=== PATIENT | male | born 1975 | race Caucasian/White ===

== ENCOUNTER 2016-09-28 16:56 | Inpatient (IN) | payer SELFPAY ==
[~2016-09-28] VITALS: Ht 177.8 cm; Wt 73.5 kg
[2016-09-28] MEDS ORDERED: SODIUM CHLORIDE 0.9% 1,000ML IVBOLUS ONE (17:30)
[2016-09-28] MEDS ORDERED: SODIUM CHLORIDE FLUSH 10ML SYR IVF ONE (17:30)
[2016-09-28] MEDS ORDERED: ACETAMINOPHEN 500 MG TABLET PO ONE (17:30)
[2016-09-28] MEDS ORDERED: CEFTRIAXONE 1,000 MG in SODIUM CHLORIDE 0.9% 50 ML IVPB ONE (17:30)
[2016-09-28] MEDS ORDERED: ACETAMINOPHEN 500 MG TABLET ONE (17:44)
[2016-09-28 18:15] LABS: BLOOD UREA NITROGEN 13 mg/dL (7-18)
[2016-09-28] MEDS ORDERED: IBUPROFEN 200 MG TABLET ONE (18:24)
[2016-09-28] MEDS ORDERED: IBUPROFEN 200 MG TABLET PO ONE (18:30)
[2016-09-28 18:46] LABS: DIFF TOTAL CELLS COUNTED 100 CELL DIFF
[2016-09-28 18:48] LABS: ANISOCYTOSIS 1+; HYPOCHROMIA 1+; MICROCYTOSIS 1+; OVALOCYTES 1+; POIKILOCYTOSIS 1+
[2016-09-28] MEDS ORDERED: GUAIFENESIN/DM 200-20MG, 10ML UDC PO PRN (19:00)
[2016-09-28] MEDS ORDERED: LORazepam 2 MG/ML, 1ML IVPush PRN (19:00)
[2016-09-28] MEDS ORDERED: morphine SULFATE 10 MG/ML, 1ML IVPush PRN (19:00)
[2016-09-28] MEDS ORDERED: ONDANSETRON 2MG/ML, 2ML IVPush PRN (19:00)
[2016-09-28 19:04] LABS: VERIFY COUNTS? YES
[2016-09-28] MEDS ORDERED: ENOXAPARIN 40 MG/0.4 ML ONE (19:08)
[2016-09-28] MEDS ORDERED: THIAMINE 100MG TABLET ONE (19:08)
[2016-09-28] MEDS: CEFTAROLINE 600 MG in SODIUM CHLORIDE 0.9% 100 ML IV SCH (19:50)
[2016-09-28] MEDS: THIAMINE 100MG TABLET PO SCH (19:50)
[2016-09-28] MEDS: ENOXAPARIN 40 MG/0.4 ML SQ SCH (19:50)
[2016-09-28] MEDS: FOLIC ACID 1 MG TABLET PO SCH (19:51)
[2016-09-28] MEDS: FAMOTIDINE 20 MG TABLET PO SCH (20:55)
[2016-09-28] MEDS: SODIUM CHLORIDE 0.9% 1,000 ML IV SCH (20:55)
[2016-09-29 01:34] VITALS: BP 134/83
[2016-09-29] MEDS: HYDROcodone/APAP 5/325 TABLET PO PRN ×2 (03:20→19:45)
[2016-09-29 03:23] VITALS: BP 108/64
[2016-09-29] MEDS: SODIUM CHLORIDE 0.9% 1,000 ML IV SCH ×3 (04:47→21:59)
[2016-09-29 06:14] LABS: BLOOD UREA NITROGEN 15 mg/dL (7-18)
[2016-09-29 07:13] VITALS: BP 109/67
[2016-09-29] MEDS: FOLIC ACID 1 MG TABLET PO SCH (10:11)
[2016-09-29] MEDS: CEFTAROLINE 600 MG in SODIUM CHLORIDE 0.9% 100 ML IV SCH ×2 (10:11→21:56)
[2016-09-29] MEDS: THIAMINE 100MG TABLET PO SCH (10:11)
[2016-09-29] MEDS: FAMOTIDINE 20 MG TABLET PO SCH ×2 (10:11→19:51)
[2016-09-29 13:10] VITALS: BP 122/75
[2016-09-29] MEDS: FERROUS SULFATE 220 MG/5 ML ORAL SOL PO SCH (17:00)
[2016-09-29 18:47] VITALS: BP 132/42
[2016-09-29] MEDS: ENOXAPARIN 40 MG/0.4 ML SQ SCH (19:00)
[2016-09-30 02:29] VITALS: BP 117/76
[2016-09-30] MEDS: HYDROcodone/APAP 5/325 TABLET PO PRN ×5 (05:36→22:01)
[2016-09-30 06:45] LABS: ANISOCYTOSIS 1+; HYPOCHROMIA 1+; MICROCYTOSIS 1+; OVALOCYTES 1+; POIKILOCYTOSIS 1+
[2016-09-30 06:48] VITALS: BP 131/76
[2016-09-30] MEDS: FAMOTIDINE 20 MG TABLET PO SCH ×2 (09:14→20:04)
[2016-09-30] MEDS: FOLIC ACID 1 MG TABLET PO SCH (09:14)
[2016-09-30] MEDS: THIAMINE 100MG TABLET PO SCH (09:14)
[2016-09-30] MEDS: FERROUS SULFATE 220 MG/5 ML ORAL SOL PO SCH ×2 (09:14→17:55)
[2016-09-30] MEDS: SODIUM CHLORIDE 0.9% 1,000 ML IV SCH (09:17)
[2016-09-30] MEDS: CEFTAROLINE 600 MG in SODIUM CHLORIDE 0.9% 100 ML IV SCH (12:49)
[2016-09-30 13:14] VITALS: BP 117/62
[2016-09-30] MEDS: ENOXAPARIN 40 MG/0.4 ML SQ SCH (19:00)
[2016-09-30 19:47] VITALS: BP 116/68
[2016-10-01] MEDS: CEFTAROLINE 600 MG in SODIUM CHLORIDE 0.9% 100 ML IV SCH ×2 (00:24→11:43)
[2016-10-01 02:00] VITALS: BP 122/71
[2016-10-01 05:04] LABS: BLOOD UREA NITROGEN 9 mg/dL (7-18)
[2016-10-01] MEDS: HYDROcodone/APAP 5/325 TABLET PO PRN ×4 (05:58→21:01)
[2016-10-01] MEDS: FERROUS SULFATE 220 MG/5 ML ORAL SOL PO SCH ×2 (07:46→17:35)
[2016-10-01] MEDS: THIAMINE 100MG TABLET PO SCH (07:46)
[2016-10-01] MEDS: FOLIC ACID 1 MG TABLET PO SCH (07:46)
[2016-10-01] MEDS: FAMOTIDINE 20 MG TABLET PO SCH ×2 (07:46→21:01)
[2016-10-01 08:28] VITALS: BP 122/71
[2016-10-01 14:24] VITALS: BP 126/82
[2016-10-01] MEDS: ENOXAPARIN 40 MG/0.4 ML SQ SCH (17:34)
[2016-10-01 19:07] VITALS: BP 116/70
[2016-10-02] MEDS: CEFTAROLINE 600 MG in SODIUM CHLORIDE 0.9% 100 ML IV SCH ×3 (00:12→23:45)
[2016-10-02] MEDS: HYDROcodone/APAP 5/325 TABLET PO PRN ×4 (01:36→20:30)
[2016-10-02 01:40] VITALS: BP 115/71
[2016-10-02 06:40] VITALS: BP 123/80
[2016-10-02] MEDS: FAMOTIDINE 20 MG TABLET PO SCH (08:30)
[2016-10-02] MEDS: FERROUS SULFATE 220 MG/5 ML ORAL SOL PO SCH ×2 (08:30→17:00)
[2016-10-02] MEDS: FOLIC ACID 1 MG TABLET PO SCH (08:30)
[2016-10-02] MEDS: THIAMINE 100MG TABLET PO SCH (08:30)
[2016-10-02 14:17] VITALS: BP 148/83
[2016-10-02] MEDS: ENOXAPARIN 40 MG/0.4 ML SQ SCH (19:00)
[2016-10-02 19:27] VITALS: BP 133/87
[2016-10-03] MEDS: HYDROcodone/APAP 5/325 TABLET PO PRN ×5 (00:35→20:54)
[2016-10-03 02:30] VITALS: BP 128/85
[2016-10-03] MEDS: FERROUS SULFATE 220 MG/5 ML ORAL SOL PO SCH ×2 (08:00→17:00)
[2016-10-03] MEDS: THIAMINE 100MG TABLET PO SCH (09:00)
[2016-10-03] MEDS: FOLIC ACID 1 MG TABLET PO SCH (09:00)
[2016-10-03] MEDS: FAMOTIDINE 20 MG TABLET PO SCH ×2 (09:00→20:54)
[2016-10-03] MEDS: CEFTAROLINE 600 MG in SODIUM CHLORIDE 0.9% 100 ML IV SCH (12:00)
[2016-10-03 12:31] VITALS: BP 119/75
[2016-10-03 14:22] VITALS: BP 119/75
[2016-10-03 19:34] VITALS: BP 122/81
[2016-10-03] MEDS: ENOXAPARIN 40 MG/0.4 ML SQ SCH (20:54)
[2016-10-04] MEDS: HYDROcodone/APAP 5/325 TABLET PO PRN ×8 (00:43→23:38)
[2016-10-04] MEDS: CEFTAROLINE 600 MG in SODIUM CHLORIDE 0.9% 100 ML IV SCH ×2 (00:44→12:57)
[2016-10-04 02:02] VITALS: BP 135/76
[2016-10-04 06:32] LABS: BLOOD UREA NITROGEN 17 mg/dL (7-18)
[2016-10-04 07:59] VITALS: BP 125/79
[2016-10-04] MEDS: THIAMINE 100MG TABLET PO SCH (09:35)
[2016-10-04] MEDS: FAMOTIDINE 20 MG TABLET PO SCH ×2 (09:35→21:49)
[2016-10-04] MEDS: FOLIC ACID 1 MG TABLET PO SCH (09:35)
[2016-10-04] MEDS: FERROUS SULFATE 220 MG/5 ML ORAL SOL PO SCH ×2 (12:57→18:39)
[2016-10-04 14:56] VITALS: BP 121/76
[2016-10-04] MEDS ORDERED: NICOTINE 7 MG/24 HR PATCH.TD24 TD SCH (17:30)
[2016-10-04 19:22] VITALS: BP 130/75
[2016-10-04] MEDS: ENOXAPARIN 40 MG/0.4 ML SQ SCH (21:49)
[2016-10-05] MEDS: CEFTAROLINE 600 MG in SODIUM CHLORIDE 0.9% 100 ML IV SCH ×2 (00:43→12:30)
[2016-10-05 01:36] VITALS: BP 119/77
[2016-10-05] MEDS: HYDROcodone/APAP 5/325 TABLET PO PRN ×3 (04:31→13:30)
[2016-10-05 07:11] VITALS: BP 119/77
[2016-10-05] MEDS: FERROUS SULFATE 220 MG/5 ML ORAL SOL PO SCH (08:48)
[2016-10-05] MEDS: FAMOTIDINE 20 MG TABLET PO SCH (08:48)
[2016-10-05] MEDS: FOLIC ACID 1 MG TABLET PO SCH (08:48)
[2016-10-05] MEDS: THIAMINE 100MG TABLET PO SCH (08:48)
[2016-10-05] MEDS ORDERED: FERR220S3 PO (09:39)
[2016-10-05] MEDS ORDERED: HYDR-3240 PO (09:39)
[2016-10-05] MEDS ORDERED: CEPH-368 PO (09:39)
[2016-10-05] MEDS ORDERED: SULF1TAB24 PO (09:39)
[2016-10-05 10:09] LABS: BLOOD UREA NITROGEN 11 mg/dL (7-18)
== END 2016-10-05 13:25 | disposition home or self-care (01) | DRG 872 ==
LOC: ED 18:22 → EDIP 18:23 → ED 18:36 → 3NE 20:36 → DCLOUNGE 10-05 13:10
PROVIDERS: ADMIT Internal Medicine
DX: A41.9 Sepsis, unspecified organism (principal); L03.115 Cellulitis of right lower limb; E87.1 Hypo-osmolality and hyponatremia; F10.10 Alcohol abuse, uncomplicated; D56.9 Thalassemia, unspecified; D50.9 Iron deficiency anemia, unspecified; F17.210 Nicotine dependence, cigarettes, uncomplicated; S91.331A Puncture wound without foreign body, right foot, initial encounter; B95.5 Unspecified streptococcus as the cause of diseases classified elsewhere; B95.8 Unspecified staphylococcus as the cause of diseases classified elsewhere; W45.0XXA Nail entering through skin, initial encounter; Y93.89 Activity, other specified; Y92.89 Other specified places as the place of occurrence of the external cause; Y99.8 Other external cause status
CPT/HCPCS: 36415; 71010; 80048; 81003; 82040; 82728; 83540; 83550; 83605; 84145; 85025; 85610; 87040; 93005; 96361; 96365; J0696; J0712; J1650; J7030

== ENCOUNTER 2018-06-20 13:46 | Outpatient (CLI) | payer OTHER ==
[~2018-06-20 13:46] MED LIST: CEPH-368 PO; FERR220S6 PO; HYDR-3240 PO; SULF1TAB24 PO
[2018-06-20] MEDS ORDERED: OMNIPAQUE 350 MG/ML, 75ML BOTTLE ONE (15:00)
== END 2018-06-20 23:59 | disposition home or self-care (01) ==
LOC: RAD 13:46
PROVIDERS: ATTEND Internal Medicine Endocrinology, Diabetes & Metabolism
DX: G93.89 Other specified disorders of brain (principal)
CPT/HCPCS: 70460; Q9967

== ENCOUNTER 2019-04-24 18:17 | Emergency (ER) | payer MEDICAID ==
[~2019-04-24] VITALS: Ht 175.3 cm; Wt 83.9 kg
[~2019-04-24 18:17] MED LIST changes: +FERR220E PO; -FERR220S6 PO
--- NOTE | 2019-04-24 18:55 | NUR ---
REPORT FROM PEBBLES EDOUARD, ASSUMING CARE OF PT AT THIS TIME
[2019-04-24] MEDS ORDERED: KETOROLAC 30 MG/1 ML ONE (19:21)
[2019-04-24] MEDS ORDERED: DIPHENHYDRAMINE 50 MG/ML, 1ML ONE (19:21)
[2019-04-24] MEDS ORDERED: PROCHLORPERAZINE 5 MG/ML, 2ML ONE (19:21)
[2019-04-24] MEDS ORDERED: PROCHLORPERAZINE 5 MG/ML, 2ML IVPush ONE (19:30)
[2019-04-24] MEDS ORDERED: DIPHENHYDRAMINE 50 MG/ML, 1ML IVPush ONE (19:30)
[2019-04-24] MEDS ORDERED: KETOROLAC 30 MG/1 ML IVPush ONE (19:30)
--- NOTE | 2019-04-24 19:34 | NUR ---
IV STARTED, PT MEDICATED PER MAR, VSS, CALL LIGHT IN REACH, PT EDUCATED ON NEED FOR URINE SAMPLE.
[2019-04-24 20:09] LABS: ALBUMIN 4.5 g/dL (3.4-5.0); ANION GAP 8 mmol/L (5-15); CALCIUM 8.8 mg/dL (8.5-10.1); CHLORIDE 106 mmol/L (98-107); CREATININE 1.02 mg/dL (0.7-1.3)
[2019-04-24 20:47] LABS: BASOPHILS % (AUTO) 0 % (0-1); EOSINOPHILS # (AUTO) 0.04 x10^3/uL (0-0.4); EOSINOPHILS % (AUTO) 1 % (1-7); LYMPHOCYTES # (AUTO) 1.41 x10^3/uL (1-3.4); LYMPHOCYTES % (AUTO) 26 % (22-44); MD NO; MEAN CORPUSCULAR HEMOGLOBIN 20.9 pg (27.5-34.5); MEAN CORPUSCULAR HGB CONC 30.8 g/dL (33.2-36.2); MEAN CORPUSCULAR VOLUME 67.8 fL (81-97); MEAN PLATELET VOLUME 8.9 fL (7.4-10.4); MONOCYTES # (AUTO) 0.56 x10^3/uL (0.2-0.8); MONOCYTES % (AUTO) 10 % (2-9); NEUTROPHILS # (AUTO) 3.45 x10^3/uL (1.8-6.8); NEUTROPHILS % (AUTO) 63 % (42-75); PLATELET COUNT 208 x10^3/uL (130-400); RED BLOOD COUNT 5.67 x10^6/uL (4.38-5.82); RED CELL DISTRIBUTION WIDTH 17.8 % (9.4-14.8)
--- NOTE | 2019-04-24 20:53 | NUR ---
ALL RESULTS BACK AT THIS TIME. CHART UP FOR RECHECK
--- NOTE | 2019-04-24 20:59 | NUR ---
AT BEDSIDE TO REASSESS PT
[2019-04-24 21:05] VITALS: BP 138/86
== END 2019-04-24 21:18 | disposition home or self-care (01) ==
LOC: ED 21:00
DX: G43.909 Migraine, unspecified, not intractable, without status migrainosus (principal); F17.200 Nicotine dependence, unspecified, uncomplicated
CPT/HCPCS: 36415; 70450; 80048; 82040; 85025; 96374; 96375; 99284; J0780; J1200; J1885